=== PATIENT | female | born 1995 | race Caucasian/White ===

== ENCOUNTER 2021-02-20 11:08 | Outpatient (CLI) | payer MEDICAID, SELFPAY | END 2021-02-20 23:59 | disposition short-term general hospital (02) | LOC: LABSPEC 11:09 | PROVIDERS: PCP Family Medicine; Referring Provider Physician Assistant; Visit Provider Physician Assistant | DX: Z20.822 Contact with and (suspected) exposure to COVID-19 (principal) | CPT/HCPCS: 87635; U0003; U0005 ==

== ENCOUNTER 2022-01-15 11:56 | Emergency (ER) | payer MEDICAID, SELFPAY ==
[2022-01-15 11:58] VITALS: BP 147/77; PULSE 101; RESP 18; TEMP 36.6; O2SAT 99; BMI 48.3
--- NOTE | 2022-01-15 12:28 | EDS_ITS ---
HPI <FREDRICK Gilbert - Last Filed: 01/15/22 18:45> History of Present Illness Chief Complaint: Nausea/Vomiting/Diarrhea Narrative Narrative: Patient presents today with nausea, vomiting, and abdominal pain that started around 8 AM this morning. She states she has vomited around 12 times and has had several bouts of loose stool. Patient denies hematemesis, dysuria, hematuria, blood in her stool, fever, and prior abdominal surgeries. LMP 12/21/21. PFSH <FREDRICK Gilbert - Last Filed: 01/15/22 18:45> PFSH Home Medications ondansetron 4 mg disintegrating tablet 4 mg PO Q8H PRN nausea and vomiting #10 tabs 01/15/22 [Rx Last Taken Unknown] Allergy/AdvReac Type Severity Reaction Status Date / Time No Known Allergies Allergy Verified 01/15/22 11:59 Social History Smoking Status: Current every day smoker tobacco type: cigarettes ROS <FREDRICK Gilbert - Last Filed: 01/15/22 18:45> ROS ED Constitutional Constitutional ED: Denies chills, fever(s) or sweats Eyes Eyes: Denies change in vision ENT ENT ED: Denies rhinorrhea or sore throat Cardiovascular Cardiovascular: Denies chest pain Respiratory/Chest Respiratory/Chest: Reports cough; Denies dyspnea, dyspnea on exertion, shortness of breath at rest or shortness of breath with exertion Gastrointestinal Gastrointestinal: Reports abdominal pain, diarrhea, nausea and vomiting; Denies constipation, hematemesis, hematochezia or melena Genitourinary Genitourinary ED: Denies dysuria, hematuria or urinary frequency Musculoskeletal Musculoskeletal: Denies back pain or myalgias Integumentary Denies Abrasions or rash Neurologic Neurologic: Denies headache(s) or weakness EXAM <FREDRICK Gilbert - Last Filed: 01/15/22 18:45> Physical Exam Const Vital Signs: 01/15/22 11:58 01/15/22 13:50 Temperature 97.8 F Temperature Source Temporal Pulse Rate 101 H 90 Respiratory Rate 18 24 H Blood Pressure 147/77 H Blood Pressure Mean 100 Pulse Ox 99 Oxygen Delivery Method Room Air Positive obese Nutritional Appearance: obese HEENT Reports moist mucous membranes Negative for trauma Eyes PERRL and EOMs intact bilaterally Neck supple Resp normal respiratory effort and clear to auscultation bilaterally Cardio regular rate, regular rhythm and no murmurs GI normal to inspection, nondistended, normoactive bowel sounds and no masses; Negative for hepatosplenomegaly GI Narrative: Some tenderness to palpation in the epigastric region. Palpation: soft; Negative for guarding Back/Spine no CVA tenderness Extremity normal to inspection General Extremety ED: Negative for edema General Extremity: Negative for edema Neuro oriented x3 and no sensory deficits noted Sensorium / Orientation: alert Motor Exam: Negative for general weakness Psych mental status grossly normal Skin no rashes or lesions noted, no wounds and skin turgor normal General Skin Exam: elasticity normal <Dr. Asia Monge MD - Last Filed: 01/15/22 17:11> Physical Exam Const Vital Signs: 01/15/22 11:58 01/15/22 13:50 Temperature 97.8 F Temperature Source Temporal Pulse Rate 101 H 90 Respiratory Rate 18 24 H Blood Pressure 147/77 H Blood Pressure Mean 100 Pulse Ox 99 Oxygen Delivery Method Room Air MDM <FREDRICK Gilbert - Last Filed: 01/15/22 18:45> MDM MDM Narrative Medical decision making narrative: Patient was given Zofran, IV fluids, and Protonix. Labs were drawn. Patient symptoms are consistent with acute gastroenteritis. Upon reexamination patient was feeling much better, did not vomit here in the ED, and was comfortable. I am comfortable with patient discharging home patient is agreeable with plan. Patient was advised to return if symptoms worsen or do not improve. Lab Data Attestation: I reviewed the patient's lab results. Lab results narrative: Elevated neutrophils. Labs: Laboratory Results - last 24 hr 01/15/22 01/15/22 01/15/22 12:55 12:55 12:55 WBC 10.9 RBC 5.33 Hgb 15.7 H Hct 47.1 H MCV 88.4 MCH 29.5 MCHC 33.3 RDW Std Deviation 41.1 RDW Coeff of Oskar 12.7 Plt Count 241 MPV 9.3 Immature Gran % (Auto) 0.400 Neut % (Auto) 89.7 H Lymph % (Auto) 6.0 L [place] % (Auto) 3.3 Eos % (Auto) 0.5 Baso % (Auto) 0.1 Absolute Neuts (auto) 9.7 H Absolute Lymphs (auto) 0.65 L Nucleated RBC % 0 Sodium 138 Potassium 4.0 Chloride 108 H Carbon Dioxide 26.0 Anion Gap 4 L BUN 12 Creatinine 0.71 Estim Creat Clear Calc 97.58 Est GFR (MDRD) Af Amer 125 Est GFR (MDRD) Non-Af 103 BUN/Creatinine Ratio 16.8 Glucose 132 H Calcium 8.8 Total Bilirubin 0.90 AST 9 L ALT 32 Alkaline Phosphatase 74 Total Protein 7.1 Albumin 3.6 Globulin 3.5 Albumin/Globulin Ratio 1.0 Serum , Qual NEGATIVE Urine Color Urine Clarity Urine pH Ur Specific [place] Urine Protein Urine Glucose (UA) Urine Ketones Urine Occult Blood Urine Nitrite Urine Bilirubin Urine Urobilinogen Ur Leukocyte Esterase Urine RBC Urine WBC Ur Squamous Epith Cells Urine Bacteria Urine Mucus 01/15/22 12:55 WBC RBC Hgb Hct MCV MCH MCHC RDW Std Deviation RDW Coeff of Oskar Plt Count MPV Immature Gran % (Auto) Neut % (Auto) Lymph % (Auto) [place] % (Auto) Eos % (Auto) Baso % (Auto) Absolute Neuts (auto) Absolute Lymphs (auto) Nucleated RBC % Sodium Potassium Chloride Carbon Dioxide Anion Gap BUN Creatinine Estim Creat Clear Calc Est GFR (MDRD) Af Amer Est GFR (MDRD) Non-Af BUN/Creatinine Ratio Glucose Calcium Total Bilirubin AST ALT Alkaline Phosphatase Total Protein Albumin Globulin Albumin/Globulin Ratio Serum , Qual Urine Color Yellow Urine Clarity Sl. Cloudy Urine pH 5.0 Ur Specific [place] 1.020 Urine Protein 15 H Urine Glucose (UA) Normal Urine Ketones 5 H Urine Occult Blood 10 H Urine Nitrite Negative Urine Bilirubin Negative Urine Urobilinogen Normal Ur Leukocyte Esterase 25 H Urine RBC 0-5 SEEN Urine WBC 0-5 SEEN Ur Squamous Epith Cells 0-5 SEEN Urine Bacteria 2+ Urine Mucus 2+ <Dr. Asia Mogne MD - Last Filed: 01/15/22 17:11> [facility] [place] Lab Data Labs: Laboratory Results - last 24 hr 01/15/22 01/15/22 01/15/22 12:55 12:55 12:55 WBC 10.9 RBC 5.33 Hgb 15.7 H Hct 47.1 H MCV 88.4 MCH 29.5 MCHC 33.3 RDW Std Deviation 41.1 RDW Coeff of Oskar 12.7 Plt Count 241 MPV 9.3 Immature Gran % (Auto) 0.400 Neut % (Auto) 89.7 H Lymph % (Auto) 6.0 L [place] % (Auto) 3.3 Eos % (Auto) 0.5 Baso % (Auto) 0.1 Absolute Neuts (auto) 9.7 H Absolute Lymphs (auto) 0.65 L Nucleated RBC % 0 Sodium 138 Potassium 4.0 Chloride 108 H Carbon Dioxide 26.0 Anion Gap 4 L BUN 12 Creatinine 0.71 Estim Creat Clear Calc 97.58 Est GFR (MDRD) Af Amer 125 Est GFR (MDRD) Non-Af 103 BUN/Creatinine Ratio 16.8 Glucose 132 H Calcium 8.8 Total Bilirubin 0.90 AST 9 L ALT 32 Alkaline Phosphatase 74 Total Protein 7.1 Albumin 3.6 Globulin 3.5 Albumin/Globulin Ratio 1.0 Serum , Qual NEGATIVE Urine Color Urine Clarity Urine pH Ur Specific [place] Urine Protein Urine Glucose (UA) Urine Ketones Urine Occult Blood Urine Nitrite Urine Bilirubin Urine Urobilinogen Ur Leukocyte Esterase Urine RBC Urine WBC Ur Squamous Epith Cells Urine Bacteria Urine Mucus 01/15/22 12:55 WBC RBC Hgb Hct MCV MCH MCHC RDW Std Deviation RDW Coeff of Oskar Plt Count MPV Immature Gran % (Auto) Neut % (Auto) Lymph % (Auto) [place] % (Auto) Eos % (Auto) Baso % (Auto) Absolute Neuts (auto) Absolute Lymphs (auto) Nucleated RBC % Sodium Potassium Chloride Carbon Dioxide Anion Gap BUN Creatinine Estim Creat Clear Calc Est GFR (MDRD) Af Amer Est GFR (MDRD) Non-Af BUN/Creatinine Ratio Glucose Calcium Total Bilirubin AST ALT Alkaline Phosphatase Total Protein Albumin Globulin Albumin/Globulin Ratio Serum , Qual Urine Color Yellow Urine Clarity Sl. Cloudy Urine pH 5.0 Ur Specific [place] 1.020 Urine Protein 15 H Urine Glucose (UA) Normal Urine Ketones 5 H Urine Occult Blood 10 H Urine Nitrite Negative Urine Bilirubin Negative Urine Urobilinogen Normal Ur Leukocyte Esterase 25 H Urine RBC 0-5 SEEN Urine WBC 0-5 SEEN Ur Squamous Epith Cells 0-5 SEEN Urine Bacteria 2+ Urine Mucus 2+ Treatment and Re-Evaluation Narrative: Patient seen and evaluated with [facility]. I personally interviewed and examined the patient. I was involved in all aspects of patient's orders, interpretation of results, and treatment. Patient presents with mild epigastric pain along with nausea, vomiting, and diarrhea. Patient's symptoms started this morning. She ate the same dinner with multiple family members last evening and no one else has been ill. Patient sitting upright in bed in no acute distress. She is nontoxic-appearing. Head and neck examination unremarkable. She has moist mucous membranes. Heart is regular rate and rhythm. Lung sounds are clear. Abdomen is soft with mild tenderness in the epigastrium. No guarding or rebound. Hypoactive bowel sounds are noted. Neuro exam is unremarkable. Patient given IV fluids, Zofran, Protonix. Lab work obtained. Lab work returns with no significant acute abnormalities. Urinalysis reveals 2+ bacteria but 0-5 epithelial cells, 0-5 white cells, no nitrites. She has no urinary symptoms. At this time her nausea is improved and she is able to tolerate p.o. She will be discharged home with prescription for Zofran as needed. Return instructions given. Discharge Plan Triage Chief Complaint: Nausea/Vomiting/Diarrhea ED Midlevel Provider: Berta Lee ED Provider: Asia Monge Dx/Rx/DC Orders Clinical Impression: Nausea & vomiting, Gastroenteritis Instructions: ED Vomiting and Diarrhea ... Prescriptions: New ondansetron 4 mg tablet,disintegrating 4 mg PO Q8H PRN (Reason: nausea and vomiting) Qty: 10 0RF Primary Care Provider: Marcelino Sheppard Referrals: Marcelino Sheppard DO [Primary Care Provider] - 3-5 Days if not improving Activity Restrictions/Additional Instructions: Stay well-hydrated, please return if any worsening of symptoms. Disposition Disposition: Home, Self Care Discharge Date/Time: 01/15/22 13:56
[2022-01-15] MEDS: 0.9% Normal Saline 1,000 ML 1000 ML IV (12:56)
[2022-01-15] MEDS: Ondansetron 4 MG/2 ML Vial IV (12:56)
[2022-01-15 13:07] LABS: Absolute Lymphocyte Count 0.65 X10^3/uL (0.83-4.51); Absolute Neutrophil Count 9.7 X10^3/uL (2.0-7.7); Basophil# 0.01 X10^3/uL; Basophil% 0.1 % (0-1); Color, Urine Yellow (Yellow); Eosinophil# 0.05 X10^3/uL; Eosinophils% 0.5 % (0-5); Glucose, Dipstick Normal (Normal); Hematocrit 47.1 % (37-47); Hemoglobin 15.7 g/dL (12.0-15.0); Ketone-Dipstick 5 mg/dl (Negative); Leukocyte Esterase-Dipstick 25 /ul (Negative); Lymphocyte # 0.65 X10^3/ul (0.83-4.51); Mean Corp Hgb Conc 33.3 g/dL (32-36); Mean Corpuscular Hgb 29.5 pg (27.0-32.0); Mean Corpuscular Volume 88.4 fL (81-99); Mean Platelet Vol. 9.3 fl (6.2-12.0); Monocyte# 0.36 X10^3/uL; Monocyte% 3.3 % (0-10); NRBC Flagged by Analyzer 0 % (0-5); Neutrophil # 9.74 X10^3/uL (2.7-7.7); Neutrophil % 89.7 % (47-70); Nitrite-Dipstick Negative (Negative); Occult Blood-Urine 10 /ul (Negative); Platelet Count 241 K/mm3 (150-450); Protein-Dipstick 15 mg/dl (Negative); RBC Distribution Width CV 12.7 % (11.6-14.6); RBC Distribution Width SD 41.1 fl (35.1-43.9); Red Blood Count 5.33 M/mm3 (4.2-5.4); Urine Bilirubin Dipstick Negative (Negative); Urine Clarity Sl. Cloudy (Clear); Urine Urobilinogen Normal (Normal); White Blood Count 10.9 K/mm3 (4.4-11.0)
[2022-01-15 13:14] LABS: Bacteria 2+ /hpf (None Seen); Mucous, Urine 2+ /hpf (<or=2+); Red Blood Cells-Urine 0-5 SEEN /hpf (0-5); Squamous Epithelial Cells - UA 0-5 SEEN /hpf (5-10)
[2022-01-15 13:15] LABS: Internal QC Validated? YES +Cl - CLEAR BKGD; Pregnancy, Serum, hCG Quali. NEGATIVE Negative; White Blood Cells 0-5 SEEN /hpf (0-5)
[2022-01-15 13:24] LABS: AST(SGOT) 9 U/L (15-37); Alanine Aminotransfer ALT/SGPT 32 U/L (13-56); Albumin, Serum 3.6 g/dL (3.2-5.0); Alkaline Phosphatase 74 U/L (45-117); Anion Gap 4 (5-15); BUN 12 mg/dL (7-18); BUN/Creat Ratio 16.8 RATIO (10-20); Calcium,Total 8.8 mg/dL (8.5-10.1); Chloride 108 mmol/L (98-107); Creatinine, Serum 0.71 mg/dL (0.55-1.02); EST Glomerular Filtration Rate 103 mL/min (>60); Est Glom Filt Rate - Afr Amer 125 mL/min (>60); Estimated Creatinine Clearance 97.58 ml/min; Globulin 3.5 g/dL (2.2-4.2); Glucose 132 mg/dL (74-106); Protein, Total 7.1 g/dL (6.4-8.2); Sodium Level 138 mmol/L (136-145)
[2022-01-15 13:50] VITALS: PULSE 90; RESP 24
== END 2022-01-15 13:56 | disposition home or self-care (01) ==
PROVIDERS: Physician Assistant; Emergency Provider Emergency Medicine; PCP Family Medicine; Visit Provider Emergency Medicine
DX: K52.9 Noninfective gastroenteritis and colitis, unspecified (principal); F17.210 Nicotine dependence, cigarettes, uncomplicated; R11.2 Nausea with vomiting, unspecified
CPT/HCPCS: 80053; 81001; 84703; 85025; 96365; 96375; 99282; J7030; A4216; J2405